=== PATIENT | male | born 1990 | race Caucasian/White ===

== ENCOUNTER 2022-03-31 16:13 | Emergency (ER) | payer SELFPAY ==
[~2022-03-31] VITALS: Ht 175.3 cm; Wt 86.4 kg
[2022-03-31] MEDS ORDERED: normal saline 1000ML IV soln IVB ONE (16:20)
[2022-03-31] MEDS ORDERED: thiamine 100mg/ml 2ml inj. IV ONE (16:20)
[2022-03-31] MEDS ORDERED: folic acid 1mg/0.2ml inj IV ONE (16:20)
[2022-03-31 16:52] VITALS: BP 142/77
[2022-03-31] MEDS ORDERED: ondansetron/PF 4mg/2ml inj IV ONE (17:15)
[2022-03-31] MEDS ORDERED: famotidine/PF 10 mg/ml inj IV ONE (17:15)
[2022-03-31 17:16] LABS: BASOPHILS % (AUTO) 0.2 % (0-1); EOSINOPHILS % (AUTO) 0 % (0-6); HEMATOCRIT 39.2 % (42.0-52.0); HEMOGLOBIN 13.2 g/dl (14.0-17.9); LYMPHOCYTES % (AUTO) 11.8 % (21-51); MEAN CORPUSCULAR HEMOGLOBIN 28.9 PG (27.0-31.0); MEAN CORPUSCULAR HGB CONC 33.7 g/dL (33.0-36.5); MEAN CORPUSCULAR VOLUME 85.9 FL (78-98); MEAN PLATELET VOLUME 7.4 FL (7.4-10.4); MONOCYTES # (AUTO) 0.4 X10'3 (0-0.9); MONOCYTES % (AUTO) 5.1 % (2-12); NEUTROPHILS # (AUTO) 7.2 X10'3 (1.8-7.7); NEUTROPHILS % (AUTO) 82.9 % (42-75); PLATELET COUNT 206 X10'3 (140-440); RED BLOOD COUNT 4.56 X10'6 (4.70-6.10); WHITE BLOOD COUNT 8.7 X10'3 (4.5-11.0)
[2022-03-31 17:33] LABS: ALANINE AMINOTRANSFERASE 30 U/L (12-78); ALBUMIN 3.2 G/DL (3.4-5.0); ALBUMIN/GLOBULIN RATIO 1.2 (1.1-1.5); ALKALINE PHOSPHATASE 43 IU/L (46-116); ANION GAP 9 (8-16); ASPARTATE AMINO TRANSFERASE 25 U/L (10-37); BILIRUBIN,TOTAL 0.3 MG/DL (0.1-1.0); BLOOD UREA NITROGEN 17 MG/DL (7-18); BUN/CREATININE RATIO 14.5 (5.4-32.0); CALCIUM 6.8 MG/DL (8.5-10.1); CHLORIDE 110 MMOL/L (99-107); CREATININE 1.17 MG/DL (0.60-1.10); GLUCOSE 107 MG/DL (70-104); POTASSIUM 3.6 MMOL/L (3.5-5.1); SODIUM 143 MMOL/L (135-145); TOTAL CARBON DIOXIDE 23.7 MMOL/L (24-32); TOTAL PROTEIN 5.8 G/DL (6.4-8.2); eGFR 73 ML/MIN
[2022-03-31 17:34] LABS: ETHANOL 0.297 GM/DL (0.0-0.010)
== END 2022-03-31 17:54 ==
LOC: ER 16:14 → EEVIPCON 16:14 → ER 17:54
DX: S00.81XA Abrasion of other part of head, initial encounter (principal); F10.129 Alcohol abuse with intoxication, unspecified; V89.2XXA Person injured in unspecified motor-vehicle accident, traffic, initial encounter; Y93.89 Activity, other specified; Y92.89 Other specified places as the place of occurrence of the external cause; Y99.8 Other external cause status; Y90.8 Blood alcohol level of 240 mg/100 ml or more
CPT/HCPCS: 36415; 70450; 72125; 80053; 80320; 82948; 85025; 96361; 96374; 96375; 99291; J2405; J3411; J3490; J7030; 99284